=== PATIENT | female | born 1990 | race Caucasian/White ===

== ENCOUNTER 2019-07-13 20:44 | Emergency (ER) | payer SELFPAY ==
[2019-07-13] MEDS ORDERED: Ondansetron PF 4 MG/2 ML Vial ONE (21:09)
[2019-07-13 21:33] LABS: #Basophils 0.1 thou/uL (0.0-0.2); #Eosinphils 0.1 thou/uL (0.0-0.7); #Lymphocytes 1.5 thou/uL (1.20-3.40); #Monocytes 1.1 thou/uL (0.11-0.59); #Neutrophils 11.8 thou/uL (1.40-6.50); %Basophils 0.4 % (0.0-1.0); %Eosinophils 0.8 % (0.0-10.0); %Lymphocytes 10.4 % (21.0-51.0); %Monocytes 7.5 % (0.0-10.0); Hemoglobin 11.2 g/dL (12.0-16.0); Mean Corpuscular HGB CONC 31.8 g/dL (32.0-36.0); Mean Corpuscular Hemoglobin 28.1 pg (27.0-31.0); Mean Corpuscular Volume 88.4 fL (78.0-98.0); Platelet Count 281 thou/uL (130-400); RBC Distribution Width 13.5 % (11.5-14.5); Red Blood Cell (RBC) Count 3.96 mill/uL (4.20-5.40); White Blood Cell (WBC) Count 14.6 thou/uL (4.8-10.8)
[2019-07-13 21:54] LABS: ALT (SGPT) 60 U/L (8-55); AST (SGOT) 45 U/L (5-34); Albumin 3.8 g/dL (3.5-5.0); Alkaline Phosphatase 58 U/L (40-110); Anion Gap 13 mmol/L (10-20); BUN (Urea Nitrogen) 8 mg/dL (7.0-18.7); Bilirubin, Total 0.2 mg/dL (0.2-1.2); Calc. Creatinine Clearance 0 mL/min (70-130); Calcium 7.9 mg/dL (7.8-10.44); Carbon Dioxide 24 mmol/L (22-29); Chloride 107 mmol/L (98-107); Estimated GFR-MDRD 87; Globulin 3.4 g/dL (2.4-3.5); Glucose 93 mg/dL (70-105); Potassium 3.9 mmol/L (3.5-5.1); Protein, Total 7.2 g/dL (6.0-8.3); Sodium 140 mmol/L (136-145)
== END 2019-07-14 03:40 | disposition home or self-care (01) ==
LOC: ERS 20:44
DX: F15.10 Other stimulant abuse, uncomplicated (principal); F19.10 Other psychoactive substance abuse, uncomplicated; F31.9 Bipolar disorder, unspecified; J45.909 Unspecified asthma, uncomplicated; F17.290 Nicotine dependence, other tobacco product, uncomplicated; Z79.899 Other long term (current) drug therapy
CPT/HCPCS: 80053; 80178; 85025; 93005; 96361; 96374; J2405

== ENCOUNTER 2019-07-17 | Inpatient (IN) | payer SELFPAY | END 2019-07-21 15:33 | disposition home or self-care (01) | DRG 603 | PROVIDERS: ADMIT Family Medicine | DX: L03.211 Cellulitis of face (principal); L02.01 Cutaneous abscess of face; T74.11XA Adult physical abuse, confirmed, initial encounter; F10.10 Alcohol abuse, uncomplicated; F31.9 Bipolar disorder, unspecified; R07.9 Chest pain, unspecified; F11.11 Opioid abuse, in remission; F19.11 Other psychoactive substance abuse, in remission; B95.62 Methicillin resistant Staphylococcus aureus infection as the cause of diseases classified elsewhere; Z91.89 Other specified personal risk factors, not elsewhere classified; Z86.59 Personal history of other mental and behavioral disorders; Z59.0 Homelessness; Z90.89 Acquired absence of other organs; Z91.5 Personal history of self-harm ==